=== PATIENT | male | born 1980 | race Hispanic/Latino ===

== ENCOUNTER 2018-06-16 06:52 | Emergency (ER) | payer SELFPAY ==
[2018-06-16] MEDS ORDERED: Lidocaine 1% Inj (20ml) INFIL STA (07:29)
[2018-06-16] MEDS ORDERED: cefTRIAXone IV 1 gm in Dextros 50 ML IV ONE (07:29)
[2018-06-16] MEDS ORDERED: Lidocaine Hydrochloride 5 ML INJ ONE (07:41)
--- NOTE | 2018-06-16 07:49 | C.PDOC ---
History Of Present Illness 38 year old male presents to the ED complaining of persistent abscess to left chin for 3 days. Patient reports using hot compresses without relief. He was seen at an urgent care and prescribed Bactrim, which he reports taking as pres cribed. States he had an abscess on his legs years ago, which was lanced and resolved. Patient was pressing on the area last night, and noticed some thick white discharge came out. The area now feels firm again. He denies any fever or chills. Time Seen by Provider: 06/16/18 07:18 Chief Complaint (Nursing): Abnormal Skin Integrity History Per: Patient History/Exam Limitations: no limitations Onset/Duration Of Symptoms: Days (x3) Current Symptoms Are (Timing): Still Present Location Of Injury: Left: Face Past Medical History Reviewed: Historical Data, Nursing Documentation, Vital Signs Vital Signs: Last Vital Signs Temp 97.7 F 06/16/18 06:53 Pulse 96 H 06/16/18 06:53 Resp 20 06/16/18 06:53 BP 132/82 06/16/18 06:53 Pulse Ox 99 06/16/18 06:53 - Medical History Other PMH: Testicular torsion Other Surgeries: Testicular surgery Family History: States: No Known Family Hx - Social History Hx Alcohol Use: No Hx Substance Use: No - Immunization History Hx Tetanus Toxoid Vaccination: No Hx Influenza Vaccination: No Hx Pneumococcal Vaccination: No Review Of Systems Except As Marked, All Systems Reviewed And Found Negative. Constitutional: Negative for: Fever, Chills Respiratory: Negative for: Cough Gastrointestinal: Negative for: Vomiting Skin: Positive for: Other (abscess to left chin) Neurological: Negative for: Weakness, Dizziness Physical Exam - Physical Exam Appears: Well, Non-toxic, No Acute Distress Skin: Warm, Dry, Other (2 x 2 cm round indurated area, with erythema, to left chin/jawline; No fluctuance) Head: Atraumatic, Normacephalic Eye(s): bilateral: Normal Inspection, PERRL, EOMI Oral Mucosa: Moist Neck: Normal ROM Chest: Symmetrical Cardiovascular: Rhythm Regular, No Murmur Respiratory: Normal Breath Sounds, No Accessory Muscle Use Gastrointestinal/Abdominal: Soft, No Tenderness, No Distention Extremity: Bilateral: Atraumatic, Normal Color And Temperature, Normal ROM Neurological/Psych: Oriented x3, Normal Speech ED Course And Treatment - Laboratory Results Result Diagrams: 06/16/18 07:50 06/16/18 07:50 O2 Sat by Pulse Oximetry: 99 (RA) Pulse Ox Interpretation: Normal Medical Decision Making Medical Decision Making: Impression: Abscess Initial Plan: - CMP - CBC - Lido 1% ordered for procedure - 1gm IV Rocephin given Progress/Updates: Attempted needle aspiration of abscess, no material expressed. + small amount of blood. No I&D indicated at this time. Discussed with patient plan for discharge. Dispo: Plan is to discharge patient home with antibiotics. Instructed to continue warm compresses and follow up for wound check. Patient verbalizes understanding and agreement with plan. Disposition Counseled Patient/Family Regarding: Diagnosis, Need For Followup, Rx Given - Disposition Referrals: Anthony Gibbs MD [Staff Provider] - Shelly Singh MD [Staff Provider] - Disposition: HOME/ ROUTINE Disposition Time: 08:54 Condition: STABLE Additional Instructions: Apply warm compress to area Take antibiotics as prescribed twice a day follow up in 2-3 days for wound check and possible incision and drainage Prescriptions: Cephalexin [cephalexin] 500 mg PO Q12 #14 cap Sulfamethoxazole/Trimethoprim [Bactrim DS 800 mg-160 mg] 1 tab PO BID #14 tab Instructions: Boil (DC) Forms: [facility] (Tongan) - POA Present On Arrival: None - Clinical Impression Clinical Impression: Cutaneous abscess of face - PA / ASSISTANT ACCOUNT EXECUTIVE / Resident Statement MD/DO has reviewed & agrees with the documentation as recorded. - Scribe Statement The provider has reviewed the documentation as recorded by the [facility] All medical record entries made by the It[facility] were at my direction and personally dictated by me. I have reviewed the chart and agree that the record accurately reflects my personal performance of the history, physical exam, medical decision making, and the department course for this patient. I have also personally directed, reviewed, and agree with the discharge instructions and disposition.
[2018-06-16 07:57] LABS: BASO # 0.1 K/uL (0.0-0.2); BASO % 0.6 % (0.0-2.0); EOS # 0.1 K/uL (0.0-0.7); EOS % 0.8 % (0.0-4.0); LYMPH # 1.6 K/uL (1.0-4.3); LYMPH % 16.1 % (20.0-40.0); MEAN CELL VOLUME 96.2 fL (80.0-94.0); MEAN CORPUSCULAR HEMOGLOBIN 33.3 pg (27.0-31.0); MEAN CORPUSCULAR HGB CONC 34.6 g/dL (33.0-37.0); MEAN PLATELET VOLUME 6.6 fL (7.2-11.7); MONO # 0.7 K/uL (0.0-0.8); MONO % 7.2 % (0.0-10.0); NEUT # 7.7 K/uL (1.8-7.0); NEUT % 75.3 % (50.0-75.0); RBC 4.52 Mil/uL (4.40-5.90); RED CELL DISTRIBUTION WIDTH 12.9 % (11.5-14.5); WHITE BLOOD COUNT 10.2 K/uL (4.8-10.8)
[2018-06-16 08:19] LABS: ALB/GLOB RATIO 1.6 (1.0-2.1); ALBUMIN 4.8 g/dL (3.5-5.0); ALT/SGPT 22 U/L (21-72); AST/SGOT 39 U/L (17-59); BLOOD UREA NITROGEN 17 mg/dL (9-20); CALCIUM 9.1 mg/dl (8.6-10.4); GFR NON-AFRICAN AMERICAN > 60
[2018-06-16 09:13] VITALS: BP 122/71; PULSE 98; RESP 18; TEMP 98.5
[2018-06-16 09:21] VITALS: O2SAT 99
== END 2018-06-16 09:19 | disposition home or self-care (01) ==
LOC: C.ER 06:52
DX: L02.01 Cutaneous abscess of face (principal)
CPT/HCPCS: 80053; 85025; 96365; 99284; J0696

== ENCOUNTER 2018-07-20 23:39 | Emergency (ER) | payer SELFPAY ==
--- NOTE | 2018-07-21 01:48 | C.PDOC ---
History Of Present Illness 38 y/o M p/w scrotal lesion with drainage x 1 day. Patient noticed an area on his R sided scrotum which is erythematous, painful with a small opening with discharge of pus. Denies fever or chills. Denies testicular tenderness or penile discharge or pain. Time Seen by Provider: 07/21/18 01:09 Chief Complaint (Nursing): Male Genitourinary Past Medical History Vital Signs: Last Vital Signs Temp 97.9 F 07/20/18 23:51 Pulse 105 H 07/20/18 23:51 Resp 20 07/20/18 23:51 BP 155/92 H 07/20/18 23:51 Pulse Ox 100 07/20/18 23:51 Family History: States: No Known Family Hx - Social History Hx Alcohol Use: No Hx Substance Use: Yes - Immunization History Hx Tetanus Toxoid Vaccination: No Hx Influenza Vaccination: No Hx Pneumococcal Vaccination: No Review Of Systems Except As Marked, All Systems Reviewed And Found Negative. Constitutional: Negative for: Fever Respiratory: Negative for: Shortness of Breath Physical Exam - Physical Exam Additional Physical Exam Comments: gen nad head nc eyes perrl ent mmm neck supple chest no tenderness cv reg rate lungs no resp distress abd soft gu penis and testicles normal without tenderness. r sided scrotum with area of induration and central open wound with minimal discharge of pus extremities no edema skin no rash other than above neuro alert ED Course And Treatment - Laboratory Results Result Diagrams: 07/21/18 02:42 07/21/18 02:42 O2 Sat by Pulse Oximetry: 100 Medical Decision Making Medical Decision Making: CT abd/pel: COMMENTS: Right superficial left scrotum and subcutaneous phlegmon formation measuring 8.3 x 3.2 cm. The phlegmon is limited to the subcutaneous fat/superficial soft tissues. Mild bilateral hydroceles. The liver is of uniform attenuation without mass or defect. There is no intra or extrahepatic biliary ductal dilatation. The spleen is normal. The gallbladder is within normal limits. The pancreas is of normal contour and attenuation characteristics. There is no evidence of adrenal mass. Both kidneys demonstrate prompt and equal nephrograms. The kidneys are normal in size, shape and configuration. There is no evidence of renal or ureteral mass. No renal or ureteral calculi are identified. There is no hydroureter or hydronephrosis. No evidence for appendicitis. There is no bowel wall thickening. No evidence for small or large bowel obstruction. There is no evidence of abdominal ascites or lymphadenopathy. There is no evidence of intrinsic or extrinsic bladder mass. There is no pelvic ascites or lymphadenopathy. Images of the lung bases show no evidence of pleural or parenchymal mass. There are no pleural effusions. The bony structures are free of lytic or blastic lesions. IMPRESSION: Right superficial left scrotum and subcutaneous phlegmon formation measuring 8.3 x 3.2 cm. The phlegmon is limited to the subcutaneous fat/superficial soft tissues. Mild bilateral hydroceles. No evidence of acute abdominal or pelvic pathology. Patient offered I&D but patient refused. I instructed patient to keep very close watch over area for worsening symptoms but in mean time to perform warm compresses and antibiotics and f/u with Urology in 48 hours. Disposition - Disposition Referrals: Zachary Sellers MD [Staff Provider] - Disposition: HOME/ ROUTINE Disposition Time: 04:34 Condition: FAIR Prescriptions: Cephalexin [Keflex] 500 mg PO Q8H #24 capsule Sulfamethoxazole/Trimethoprim [Bactrim DS 800 mg-160 mg] 1 tab PO BID #20 tab Instructions: Abscess Incision and Drainage (DC) Forms: [employer] (Armenian) - Clinical Impression Clinical Impression: Phlegmon
[2018-07-21] MEDS ORDERED: Iodixanol 320 MG/ML 100 ML BOTTLE IV ONE (02:17)
[2018-07-21 02:26] VITALS: RESP 16
[2018-07-21 02:45] LABS: BASO % 0.4 % (0.0-2.0); EOS # 0.1 K/uL (0.0-0.7); EOS % 0.5 % (0.0-4.0); HEMOGLOBIN 14.1 g/dL (12.0-18.0); LYMPH # 1.6 K/uL (1.0-4.3); LYMPH % 14.5 % (20.0-40.0); MEAN CORPUSCULAR HEMOGLOBIN 32.1 pg (27.0-31.0); MEAN CORPUSCULAR HGB CONC 33.8 g/dL (33.0-37.0); MONO # 0.9 K/uL (0.0-0.8); MONO % 8.4 % (0.0-10.0); NEUT # 8.5 K/uL (1.8-7.0); NEUT % 76.2 % (50.0-75.0); RBC 4.39 Mil/uL (4.40-5.90); RED CELL DISTRIBUTION WIDTH 12.9 % (11.5-14.5); WHITE BLOOD COUNT 11.2 K/uL (4.8-10.8)
[2018-07-21 02:49] LABS: INR 1.1; PROTHROMBIN TIME 12.1 SECONDS (9.7-12.2)
[2018-07-21 02:53] LABS: ALB/GLOB RATIO 1.5 (1.0-2.1); ALBUMIN 4.2 g/dL (3.5-5.0); ALT/SGPT 22 U/L (21-72); AST/SGOT 31 U/L (17-59); BLOOD UREA NITROGEN 10 mg/dL (9-20); CALCIUM 8.8 mg/dl (8.6-10.4); GFR NON-AFRICAN AMERICAN > 60
[2018-07-21] MEDS ORDERED: Lidocaine 1% Inj (20ml) INFIL ONE (05:02)
[2018-07-21 05:30] VITALS: BP 152/82; PULSE 87; TEMP 98.8; O2SAT 99
--- NOTE | 2018-07-21 08:46 | CT ---
Date of service: 07/21/2018 PROCEDURE: CT Abdomen and Pelvis with contrast HISTORY: intrascrotal vs superficial abscess COMPARISON: None available. TECHNIQUE: CT scan of the abdomen and pelvis was performed after administration of intravenous contrast. Oral contrast was not administered. Coronal and sagittal reformatted images were obtained. Contrast dose: 100 mL Visipaque 320 Radiation dose: Total exam DLP = 334.5 mGy-cm. This CT exam was performed using one or more of the following dose reduction techniques: Automated exposure control, adjustment of the mA and/or kV according to patient size, and/or use of iterative reconstruction technique. FINDINGS: LOWER THORAX: The visualized lungs are clear. LIVER: Normal in size with homogeneous enhancement. No gross lesion or ductal dilatation. GALLBLADDER AND BILE DUCTS: The gallbladder is contracted. PANCREAS: Normal in size with homogeneous enhancement. No gross lesion or ductal dilatation. SPLEEN: Normal in size and appearance. ADRENALS: No discrete nodule. KIDNEYS AND URETERS: Normal in size with homogeneous enhancement. No hydronephrosis. No solid mass. VASCULATURE: No aortic aneurysm. There are no aortic atherosclerotic calcifications or mural plaque present. BOWEL: Evaluation of the bowel is limited in the absence of oral contrast. There is fluid in the stomach. There is mild dilatation of fluid-filled small bowel loops with mild mural enhancement. There is moderate amount of stool in the colon. No evidence for bowel wall thickening or obstruction. APPENDIX: Normal appendix. PERITONEUM: No free fluid. No free air. LYMPH NODES: No enlarged lymph nodes. BLADDER: Well distended and normal in appearance. REPRODUCTIVE: The prostate gland is normal in size. BONES: No acute fracture. Within normal limits for the patient's age. OTHER FINDINGS: There is diffuse subcutaneous edema and cord-like enhancement in the right hemiscrotum. No evidence for drainable abscess or fluid collection. IMPRESSION: Findings are most compatible with right haleigh scrotal cellulitis with cord like enhancement. No evidence for drainable fluid collection. Constipation. A preliminary report was provided by [employer]. The final report is tagged to the PA review folder.
== END 2018-07-21 05:44 | disposition home or self-care (01) ==
LOC: C.ER 23:39
DX: N49.2 Inflammatory disorders of scrotum (principal)
CPT/HCPCS: 74177; 80053; 85025; 85610; 85730; 86850; 86900; 99284; Q9967